=== PATIENT | male | born 1980 | race Caucasian/White ===

== ENCOUNTER 2021-01-19 12:07 | Day surgery (SDC) | payer OTHER ==
[~2021-01-19] VITALS: Ht 188 cm; Wt 114.3 kg
[~2021-01-19 12:07] MED LIST: NUVIGIL150 MG; OMEP20ER PO; Prozac20 MG PO
[2021-01-19] MEDS ORDERED: Neurontin 100100 MG (12:16)
== END 2021-01-19 13:33 | disposition home or self-care (01) ==
LOC: ORSCSDS 12:07
PROVIDERS: Student in an Organized Health Care Education/Training Program
PROC: 0DB78ZX Excision of Stomach, Pylorus, Via Natural or Artificial Opening Endoscopic, Diagnostic (ICD-10-PCS; principal; 2021-01-19 13:15)
PROC: 0DB58ZX Excision of Esophagus, Via Natural or Artificial Opening Endoscopic, Diagnostic (ICD-10-PCS; principal; 2021-01-19 13:15)
PROC: 0DB98ZX Excision of Duodenum, Via Natural or Artificial Opening Endoscopic, Diagnostic (ICD-10-PCS; principal; 2021-01-19 13:15)
DX: R10.13 Epigastric pain (principal); K21.9 Gastro-esophageal reflux disease without esophagitis; K31.7 Polyp of stomach and duodenum; Z87.891 Personal history of nicotine dependence; I10 Essential (primary) hypertension; Z79.899 Other long term (current) drug therapy
CPT/HCPCS: 88305; 88342; J2704; J7120